=== PATIENT | male | born 1970 | race Caucasian/White ===

== ENCOUNTER 2018-05-17 19:56 | Emergency (ER) | payer BC ==
[2018-05-17] MEDS ORDERED: ASPIRIN 81 MG CHEWABLE TABLET PO ONE (20:01)
[2018-05-17] MEDS ORDERED: SODIUM CHLORIDE 0.9% 500 ML IV ONE (20:01)
[2018-05-17] MEDS ORDERED: HEPARIN SODIUM 1000 UNIT/1 ML 10ML VIAL IVP ONE (20:05)
--- NOTE | 2018-05-17 20:07 | Emergency Department Record ---
History of Present Illness - General Chief Complaint: Chest Pain Stated Complaint: chest pain Source: Patient Mode of Arrival: Ambulatory Limitations: No limitations - History of Present Illness Initial Comments: 48 yo male presents with chest discomfort throughout the day. The location is the left chest. The sensation is a pressure feeling. He has noticed it more with activity or exertion. He has noticed that it resolves with rest or inactivity. No shortness of breath. No history of CAD or PE/DVT. No edema. He has "borderline hypertension and diet treated elevated cholesterol. His brother had an NV but was morbidly obese (500 pounds). He uses oral tobacco. He took a full aspirin about 2 hours ago. He did not sweating with the symptoms. He is about 2/10 at rest. MD Complaint: Chest pain -: Days(s) (1) Onset: During exertion Pain Location: Left chest Pain Radiation: LUE Severity: Moderate Quality: Other (Pressure) Consistency: Intermittent Improves With: Rest Worsens With: Exertion Anginal Symptoms: Other Other Symptoms: Other Treatments Prior to Arrival: None - Related Data Home Medications Medication Instructions Recorded Confirmed Last Taken No Home Med [NO HOME MEDS] 05/17/18 05/17/18 Unknown Allergies Allergy/AdvReac Type Severity Reaction Status Date / Time No Known Drug Allergies Allergy Verified 05/17/18 20:01 Review of Systems Constitutional: Denies: Chills, Fever, Malaise, Weakness Eyes: Denies: Eye discharge ENT: Denies: Congestion, Throat pain Respiratory: Denies: Cough, Dyspnea, Hemoptysis, Stridor, Wheezes Cardiovascular: Reports: Chest pain. Denies: Dyspnea on exertion, Edema, Palpitations, Syncope Endocrine: Denies: Fatigue, Polydipsia, Polyuria Gastrointestinal: Denies: Abdominal pain, Diarrhea, Nausea, Vomiting Genitourinary: Denies: Dysuria, Frequency, Hematuria Musculoskeletal: Denies: Arthralgia, Back pain, Joint swelling, Myalgia Skin: Denies: Bruising, Change in color, Rash Neurological: Denies: Headache, Numbness, Weakness Psychiatric: Denies: Anxiety Hematological/Lymphatic: Denies: Blood Clots, Easy bleeding, Easy bruising Physical Exam - General General Appearance: Alert, Oriented x3, Cooperative, No acute distress Limitations: No limitations - Head Head exam: Atraumatic, Normal inspection - Eye Eye exam: Normal appearance, Conjunctival injection - ENT ENT exam: Normal exam Ear exam: Normal external inspection Nasal Exam: Normal inspection Mouth exam: Normal external inspection - Neck Neck exam: Normal inspection, Full ROM. negative: Tenderness - Respiratory Respiratory exam: Normal lung sounds bilaterally. negative: Respiratory distress - Cardiovascular Cardiovascular Exam: Regular rate, Normal rhythm, Normal heart sounds Peripheral Pulses: 2+: Radial (R), Radial (L) - GI/Abdominal GI/Abdominal exam: Soft. negative: Tenderness - Rectal Rectal exam: Deferred - exam: Deferred - Extremities Extremities exam: Normal inspection, Full ROM, Normal capillary refill. negative: Tenderness - Back Back exam: Reports: Normal inspection, Full ROM. Denies: Muscle spasm, Rash noted, Tenderness - Neurological Neurological exam: Alert, Normal gait, Oriented X3 - Psychiatric Psychiatric exam: Normal affect, Normal mood - Skin Skin exam: Dry, Intact, Normal color, Warm Course - Reevaluation(s) Reevaluation #1: EKG #1 2000 Rate 99 Rhythm sinus [place] Normal Intervals Normal ST Abnormal inverted T waves V1-V3 Q in lead III No old EKG Heparin and Nitro ordered Aspirin was taken just prior to arrival. 05/17/18 20:07 Dr Morales paged 05/17/18 20:18 EKG was discussed with Dr Morales 05/17/18 20:24 Dr Morales accepts the transfer after review of the EKG. The troponin will be sent when available. 05/17/18 20:32 CBC was reviewed No acute changes The patient reports a discomfort chest pain level of 0 to 1 / 10 at this time. Very comfortable. 05/17/18 20:47 The troponin is 0.175 05/17/18 20:51 CXR was read as negative 05/17/18 21:07 The patient remains comfortable. Awaiting bed [place] [facility] [place] 05/17/18 21:24 Bed assigned at [facility] [place] Medical Decision Making - Lab Data Result diagrams: 05/17/18 20:10 05/17/18 20:10 Disposition Disposition: Transfer Clinical Impression: Unstable angina, NSTEMI (non-ST elevated myocardial infarction) Chest pain Qualifiers: Chest pain type: unspecified Qualified Code(s): R07.9 - Chest pain, unspecified Disposition: Acute Care Hospital Transfer Transfer To: [facility] [place] Reason For Transfer: Unstable Angina, NSTEMI Accepting Physician: Carmen Time Discussed w/Accepting Physician: 20:18 Condition: (2) Stable Forms: Patient Portal Access Time of Disposition: 20:32 Quality - Quality Measures Quality Measures: N/A - Blood Pressure Screening Does Patient Have Any of the Following: No Blood Pressure Classification: Hypertensive Reading Systolic Measurement: 164 Diastolic Measurement: 122 Screening for High Blood Pressure: < Pre-Hypertensive BP, F/U Documented > [ [id number]] Pre-Hypertensive Follow-up Interventions: Referral to alternative/primary care provider.
[2018-05-17] MEDS ORDERED: HEPARIN SODIUM/D5W 25,000 UNITS/500 ML BAG IV SCH (20:15)
[2018-05-17] MEDS ORDERED: NITROGLYCERIN/D5W 50 MG/250 ML ML IV SCH (20:15)
[2018-05-17 20:18] LABS: BASO % 0.3 % (0-6); EOS % 1.3 % (0-6); GRAN % 63.6 % (47-80); HEMATOCRIT 42.3 % (42.0-52.0); HEMOGLOBIN 14.5 gm/dl (14.0-18.0); LYMPH % 24.1 % (16-45); MEAN CELL VOLUME 85.5 fl (81-97); MEAN CORPUSCULAR HEMOGLOBIN 29.3 pg (27-33); MEAN CORPUSCULAR HGB CONC 34.3 g/dl (32-36); MEAN PLATELET VOLUME 8.9 fl (7.4-10.4); MONO % 10.7 % (0-9); PLATELET COUNT 306 K/uL (130-400); RED BLOOD COUNT 4.95 M/uL (4.40-5.70); RED CELL DISTRIBUTION WIDTH 13.7 % (11.5-14.5); WHITE BLOOD COUNT W/O DIFF 10.1 K/uL (4.2-12.2)
[2018-05-17 20:31] LABS: PARTIAL THROMBOPLASTIN TIME 30.6 SECONDS (24.5-39.1); PROTHROMBIN TIME (PATIENT) 10.7 SECONDS (9.5-12.1)
[2018-05-17 20:40] LABS: ALBUMIN 4.3 g/dL (4.0-5.0); ALKALINE PHOSPHATASE 98 U/L (40-129); ALT/SGPT 24 U/L (<41); AST/SGOT 25 U/L (10.0-50.0); BLOOD UREA NITROGEN 13 mg/dL (6-20); CREATINE PHOSPHOKINASE 114 U/L (39-308); CREATININE 0.8 mg/dL (0.7-1.2); EST GLOMERULAR FILTRATION RATE > 60 mL/min; GLUCOSE,RANDOM 99 mg/dL (74-109); TOTAL PROTEIN 6.8 g/dL (6.6-8.7)
[2018-05-17 20:41] LABS: ALB/GLOB RATIO 1.7 (1.1-1.8)
[2018-05-17 21:21] LABS: CKMB RELATIVE INDEX 7.89 % (0-4)
--- NOTE | 2018-05-19 10:46 | RADIOLOGY REPORT ---
EXAM: CHEST HISTORY: CHEST PAIN FOR ONE DAY AND DISCOMFORT FOR ONE WEEK. TECHNIQUE: A single AP view of the chest was obtained. Comparison: None. FINDINGS: The heart size is within normal limits. No acute infiltrate is seen. No pleural effusion or pneumothorax evident. IMPRESSION: NEGATIVE PORTABLE CHEST EXAMINATION. JOB NUMBER: [id number] MTDD
== END 2018-05-17 21:55 | disposition short-term general hospital (02) ==
LOC: ER 19:56
DX: I21.4 Non-ST elevation (NSTEMI) myocardial infarction (principal); I20.0 Unstable angina; F17.220 Nicotine dependence, chewing tobacco, uncomplicated
CPT/HCPCS: 71045; 80053; 82550; 82553; 84484; 85025; 85610; 85730; 93005; 93010; 96365; 96366; 96368; 96375; 99285